=== PATIENT | male | born 1960 | race African-American/Black ===

== ENCOUNTER 2018-06-27 21:59 | Emergency (ER) | payer MEDICAID ==
[~2018-06-27] VITALS: Ht 165.1 cm; Wt 68.0 kg
[~2018-06-27 21:59] MED LIST: GEODON20 MG ORAL; ZOLOFT25 MG ORAL
[2018-06-27 22:07] VITALS: BP 129/85
[2018-06-27] MEDS ORDERED: ZOLOFT25 MG ORAL (22:13)
[2018-06-27] MEDS ORDERED: GEODON20 MG ORAL (22:13)
--- NOTE | 2018-06-27 22:13 | Emergency Room Report ---
History of Present Illness General Chief Complaint: Medication Refill Source: Patient Present Illness HPI Is a 57-year-old male with history of bipolar. He presents with chief complaint of needing refill on his medication. He said is out of his Geodon and Zoloft. He denies suicidal thoughts or homicidal thought. Denies any other complaint. Denies any alcohol or drugs recently. Said he was drinking alcohol last night. Denies any drug use but said his girlfriend use methamphetamine. Said that she put it in the coffee and he may have drank some. Denies any other complaint. Allergies: Coded Allergies: IBUPROFEN (Verified Allergy, Unknown, 06/27/18) Patient History Past Medical History: see triage record, old chart reviewed, psych hx Past Surgical History: none Pertinent Family History: none Social History: Reports: alcohol use Reviewed Nursing Documentation: PMH: Agreed; PSxH: Agreed Nursing Documentation-PMH Past Medical History: No Stated History Review of Systems Eye: Denies: eye pain, blurred vision ENT: Denies: ear pain, nose congestion, throat swelling Respiratory: Denies: cough, shortness of breath Cardiovascular: Denies: chest pain, palpitations Gastrointestinal: Denies: abdominal pain, diarrhea, nausea, vomiting Musculoskeletal: Denies: back pain, joint pain Skin: Denies: rash Neurological: Denies: headache, numbness Endocrine: Denies: increased thirst, increased urine Hematologic/Lymphatic: Denies: easy bruising All Other Systems: negative except mentioned in HPI Physical Exam Vital Signs Date Time Temp Pulse Resp B/P (MAP) Pulse Ox O2 Delivery O2 Flow Rate FiO2 06/27/18 21:55 98.6 123 18 129/85 98 Room Air vitals with tachycardia Sp02 EP Interpretation: reviewed, normal General Appearance: well appearing, no apparent distress, alert, other - Intoxicated with slurring of speech Head: normocephalic, atraumatic Eyes: bilateral eye PERRL, bilateral eye EOMI ENT: hearing grossly normal, normal pharynx Neck: full range of motion, supple, no meningismus Respiratory: chest non-tender, lungs clear, normal breath sounds Cardiovascular #1: regular rate, rhythm, no murmur Gastrointestinal: normal bowel sounds, non tender, no mass, no organomegaly, no bruit, non-distended Musculoskeletal: back normal, gait/station normal, normal range of motion Psychiatric: mood/affect normal Skin: warm/dry Medical Decision Making Diagnostic Impression: Primary Impression: Encounter for medication refill Additional Impressions: Alcohol intoxication Qualified Codes: F10.920 - Alcohol use, unspecified with intoxication, uncomplicated Methamphetamine abuse ER Course Patient here for medication refill. He has evidence of intoxication. Once he is more clinically sober, we'll discharge home. Last Vital Signs Date Time Temp Pulse Resp B/P (MAP) Pulse Ox O2 Delivery O2 Flow Rate FiO2 06/27/18 21:55 98.6 123 18 129/85 98 Room Air Status: improved Disposition: HOME, SELF-CARE Condition: Stable Scripts Sertraline Hcl* (ZOLOFT*) 25 Mg Tablet 25 MG ORAL DAILY, #30 TAB Prov: Yariel Metcalf MD 06/27/18 Ziprasidone Hcl* (GEODON*) 20 Mg Capsule 20 MG ORAL DAILY, #30 CAP 0 Refills Prov: Yariel Metcalf MD 06/27/18 Patient Instructions: Medicine Refill at the Emergency Department Additional Instructions: Abstain from alcohol and drugs. Follow-up with your doctor in 7 days. Return if worse. Yariel Metcalf MD Jun 27, 2018 22:13
[2018-06-27 23:23] VITALS: BP 129/85
== END 2018-06-27 23:22 | disposition home or self-care (01) ==
LOC: EDBD 21:59 → EMR 22:19
DX: Z76.0 Encounter for issue of repeat prescription (principal); F31.9 Bipolar disorder, unspecified; F17.200 Nicotine dependence, unspecified, uncomplicated; F10.920 Alcohol use, unspecified with intoxication, uncomplicated; F15.10 Other stimulant abuse, uncomplicated; M54.5 Low back pain; Z88.8 Allergy status to other drugs, medicaments and biological substances
CPT/HCPCS: 99283